=== PATIENT | female | born 1990 | race Caucasian/White ===

== ENCOUNTER 2024-07-13 08:39 | Emergency (ER) | payer SELFPAY ==
[~2024-07-13] VITALS: Ht 160 cm; Wt 64.0 kg
[2024-07-13 08:41] VITALS: O2SAT 100
[2024-07-13 08:54] VITALS: BP 104/76; PULSE 86; RESP 18; TEMP 36.8; O2SAT 98
[2024-07-13] MEDS: SODIUM CHLORIDE 0.9% 1,000 ML IV ONE (09:23)
[2024-07-13] MEDS: FAMOTIDINE 20MG/2ML VIAL IV ONE (09:29)
[2024-07-13] MEDS: ONDANSETRON HCL 4MG/2ML INJ IV ONE (09:29)
[2024-07-13 09:33] LABS: HEMATOCRIT. 43.1 % (36.0-48.0); HEMOGLOBIN. 13.6 g/dL (12.0-16.0); MEAN CORPUSCULAR HGB CONC 31.6 g/dL (31.0-37.0); MEAN PLATELET VOLUME 7.6 fl (7.4-10.4); PLATELET 348 x1000/uL (130-400); RED BLOOD CELL COUNT 5.45 mill/uL (4.2-5.4); RED CELL DISTRIBUTION WIDTH 15.2 % (11.6-14.6); WHITE BLOOD COUNT 13.6 x1000/uL (4.5-11.0)
[2024-07-13 09:35] LABS: DIFFERENTIAL COMMENT 1
[2024-07-13 09:41] LABS: CHLORIDE 105 mEq/L (98-107); POTASSIUM 4.1 mEq/L (3.5-5.1); SODIUM 139 mEq/L (136-145)
[2024-07-13 09:42] LABS: CALCIUM 9.1 mg/dL (8.7-10.4); CARBON DIOXIDE 24 mEq/L (21-32)
[2024-07-13 09:44] LABS: HCG SCREEN NEGATIVE
[2024-07-13 09:47] LABS: CREATININE 0.6 mg/dL (0.6-1.0); GLUCOSE 118 mg/dL (70-105)
[2024-07-13 09:48] LABS: UREA NITROGEN BLOOD 14 mg/dL (9-23)
[2024-07-13 09:49] LABS: ALANINE AMINOTRANSFERASE 31 IU/L (10-49); ALBUMIN 4.5 g/dL (3.2-4.8); ASPARTATE AMINOTRANSFERASE 24 IU/L (<34); BILIRUBIN DIRECT 0.1 mg/dL (<=3.0)
[2024-07-13 09:50] LABS: BILIRUBIN TOTAL 0.5 mg/dL (0.1-1.0); PROTEIN TOTAL 8.1 g/dL (6.0-8.3)
[2024-07-13] MEDS: KETOROLAC 30MG/ML VIAL IV NR (09:56)
[2024-07-13 10:25] LABS: PLATELET ESTIMATE NORMAL
[2024-07-13] MEDS ORDERED: ONDA-239 PO (11:12)
== END 2024-07-13 11:37 | disposition home or self-care (01) ==
LOC: ER 08:39
DX: K52.9 Noninfective gastroenteritis and colitis, unspecified (principal); F41.9 Anxiety disorder, unspecified; I10 Essential (primary) hypertension; Z79.899 Other long term (current) drug therapy
CPT/HCPCS: 80076; 80048; 84703; 83690; 85025; 36415; 96361; 96374; 96375; 99284; J3490; J1885; J2405; J7030; Z7610 ×2